=== PATIENT | male | born 1990 | race Caucasian/White ===

== ENCOUNTER 2018-07-24 19:54 | Emergency (ER) | payer OTHER ==
[2018-07-24 20:16] VITALS: BP 137/90; PULSE 79; TEMP 98.3; BMI 27.4
--- NOTE | 2018-07-24 21:12 | PDOC ---
History of Present Illness - General Chief Complaint: Injury Stated Complaint: FIRST FINGER INJURY/RIGHT SIDE Time Seen by Provider: 07/24/18 20:43 - History of Present Illness Initial Comments: 07/24/18 21:09 28-year-old male without comorbidities presents for evaluation of right thumb pain after slamming his stomach the car door 3 days ago. Past History - Past Medical History Allergies/Adverse Reactions: Allergies Allergy/AdvReac Type Severity Reaction Status Date / Time No Known Allergies Allergy Verified 07/24/18 20:16 COPD: No - Suicide/Smoking/Psychosocial Hx Smoking History: Never smoked Have you smoked in the past 12 months: No Information on smoking cessation initiated: No Hx Alcohol Use: No Drug/Substance Use Hx: No Review of Systems - Review of Systems Musculoskeletal: Yes: Joint Pain *Physical Exam - Vital Signs Last Vital Signs Temp Pulse Resp BP Pulse Ox 98.3 F 79 18 137/90 99 07/24/18 20:12 07/24/18 20:12 07/24/18 20:12 07/24/18 20:12 07/24/18 20:12 - Physical Exam Comments: 07/24/18 21:10 Right thumb skin color and temperature are normal. There is a subungual hematoma encompassing about 75% of the nailbed. No gross sensory motor deficits flexor and extensor tendon function work neurovascularly intact. ED Treatment Course - RADIOLOGY Radiology Studies Ordered: Category Date Time Status FINGER(S) RIGHT [RAD] Stat Radiology 07/24/18 20:47 Ordered Medical Decision Making - Medical Decision Making 07/24/18 21:10 No evidence of fracture trauma destructive process on radiographs. Subungual hematoma nothing to do at this point it's been 3 days since the injury. Follow- up with hand surgery. *DC/Admit/Observation/Transfer Diagnosis at time of Disposition: Subungual hematoma of finger of right hand - Discharge Dispostion Disposition: HOME Condition at time of disposition: Stable Decision to Admit order: No - Referrals Referrals: Nick Singer MD [Primary Care Provider] - Eric Elliott MD [Staff Physician] - - Patient Instructions Printed Discharge Instructions: DI for Subungual Hematoma Additional Instructions: Tylenol and Motrin for pain. Follow-up with hand surgery in 2-3 days for further evaluation and treatment options. Return to the emergency room for worsening symptoms. There is no fracture on x-ray today. Nothing to do. Thumb. - Post Discharge Activity
== END 2018-07-24 21:11 | disposition home or self-care (01) ==
LOC: JERFT 19:54 → JER 19:54 → JERFT 21:11
DX: S60.111A Contusion of right thumb with damage to nail, initial encounter (principal); V48.3XXA Unspecified car occupant injured in noncollision transport accident in nontraffic accident, initial encounter; Y92.488 Other paved roadways as the place of occurrence of the external cause; Y93.89 Activity, other specified; Y99.8 Other external cause status
CPT/HCPCS: 73140-TC-RT-FY; 99282-25